=== PATIENT | female | born 1965 | race Caucasian/White ===

== ENCOUNTER → 2017-08-22 | Outpatient (CLI) | payer MEDICARE ==
[~2017-08-22] MED LIST: ASPIRIN 325MG325 MG PO; ATENOLOL25 M1 PO; AUGMENTIN 875 M1 TAB PO; CIPRO 500MG TA500 MG PO; DOXYCYCLINE MO100 MG PO; KLONOPIN1 MG PO; LAMICTAL25 MG PO; LISINOPRIL2.5 MG PO; LOMOTIL 2.5MG.2.5 MG PO; LOSARTAN POTAS100 MG PO; PAXIL20 MG NG; PLAVIX75 MG PO; PRAVACHOL 40MG40 MG PO; PREDNISONE50 MG PO; PREVACID 30MG C30 M1 PO; PYRIDIUM 200MG200 MG PO; ROBAFEN AC 10480 ML PO; SEROQUEL 100MG100 MG PO; TRAZODONE100 MG PO; VICODIN 5/500 T1 TAB PO; WELLBUTRIN SR200 MG PO; ZOFRAN ODT8 MG PO
[2017-08-22 13:13] LABS: BUN 11 mg/dL (7-18)
[2017-08-22 13:14] LABS: GFR (ESTIMATED) 75 ML/MIN (59-)
== END ==
LOC: LAB 11:49
PROVIDERS: Physician Assistant
DX: I25.10 Atherosclerotic heart disease of native coronary artery without angina pectoris (principal); E78.5 Hyperlipidemia, unspecified